=== PATIENT | female | born 1980 | race African-American/Black ===

== ENCOUNTER 2018-03-30 10:16 | Outpatient (CLI) | payer BC | END 2018-03-30 11:30 | disposition home or self-care (01) | LOC: OBT 10:16 → L-D 10:18 → OBT 11:30 | DX: O36.8120 Decreased fetal movements, second trimester, not applicable or unspecified (principal); Z3A.20 20 weeks gestation of pregnancy; O09.512 Supervision of elderly primigravida, second trimester; Z88.0 Allergy status to penicillin | CPT/HCPCS: 76815 ==

== ENCOUNTER 2018-08-03 12:35 | Inpatient (IN) | payer BC ==
[2018-08-03] MEDS ORDERED: LIDOCAINE 1% (MPF) 30 ML INJ INJ (14:30)
[2018-08-03] MEDS ORDERED: MISOPROSTOL 200 MCG TAB PR ×2 (14:30→23:00)
[2018-08-03] MEDS ORDERED: OXYTOCIN 30 UNITS/LR 500 ML IV ×3 (14:30→23:00)
[2018-08-03] MEDS ORDERED: IBUPROFEN 600 MG TAB PO (14:30)
[2018-08-03] MEDS ORDERED: BUTORPHANOL 2 MG INJ IV (14:30)
[2018-08-03] MEDS ORDERED: CARBOPROST 250 MCG INJ IM ×2 (14:30→23:00)
[2018-08-03] MEDS ORDERED: METHYLERGONOVINE 0.2 MG INJ IM ×2 (14:30→23:00)
[2018-08-03 14:43] LABS: ADD MAN DIFF? NO
[2018-08-03 14:45] LABS: BASOPHIL # 0.1 10^3/ul (0.0-0.1); BASOPHILS % 0.5 % (0.0-2.0); EOSINOPHILS # 0.1 10^3/ul (0.0-0.5); EOSINOPHILS % 0.6 % (0.0-7.0); HEMATOCRIT 38.6 % (37.0-47.0); HEMOGLOBIN 12.9 g/dl (12.0-16.0); LYMPHOCYTES # 2.6 10^3/ul (0.8-2.9); LYMPHOCYTES % 22.4 % (15.0-51.0); MEAN CORPUSCULAR HEMOGLOBIN 29.7 pg (29.0-33.0); MEAN CORPUSCULAR HGB CONC 33.4 g/dl (32.0-37.0); MEAN CORPUSCULAR VOLUME 88.7 fl (82.0-101.0); MEAN PLATELET VOLUME 10.8 fl (7.4-10.4); MONOCYTE # 0.6 10^3/ul (0.3-0.9); MONOCYTES % 5.5 % (0.0-11.0); NEUTROPHIL # 8.1 10^3/ul (1.6-7.5); NEUTROPHILS % 70.5 % (39.0-77.0); PLATELET COUNT 222 10^3/UL (140-415); RED BLOOD COUNT 4.35 10^6/ul (4.20-5.40); RED CELL DISTRIBUTION WIDTH 13.4 % (11.5-14.5)
[2018-08-03 14:45] LABS: WHITE BLOOD COUNT 11.5 10^3/ul (4.8-10.8)
[2018-08-03] MEDS: LACTATED RINGER'S 1,000 ML IV ×2 (14:47→21:35)
[2018-08-03 15:05] LABS: INR 0.83; PARTIAL THROMBOPLASTIN TIME 28.1 Sec (23.0-35.0); PROTIME 11.5 Sec (11.9-14.9); PT RATIO 0.9
[2018-08-03 15:05] LABS: GLUCOSE 62 mg/dl (70-220)
[2018-08-03 15:37] LABS: HEPATITIS B SURFACE ANTIGEN NEGATIVE (NEGATIVE)
[2018-08-03] MEDS: OXYTOCIN 30 UNITS/LR 500 ML IV ×2 (15:57→23:19)
[2018-08-03] MEDS: DEXTROSE 5%-LR 1,000 ML IV (18:56)
[2018-08-03 21:58] LABS: RAPID PLASMA REAGIN NONREACTIVE (NR)
[2018-08-03] MEDS ORDERED: MINERAL OIL LIGHT 10 ML VIAL (22:03)
[2018-08-03] MEDS: morphine 4 MG/ML VIAL IV (22:43)
[2018-08-03] MEDS ORDERED: morphine 4 MG/ML VIAL (22:45)
[2018-08-03] MEDS ORDERED: ONDANSETRON 4 MG INJ IV (23:00)
[2018-08-03] MEDS ORDERED: LANOLIN HPA 1 PKT TOP (23:00)
[2018-08-03] MEDS ORDERED: NACL 0.9% 3 ML SYG IV (23:00)
[2018-08-03] MEDS ORDERED: HYDROCODONE/APAP (5/325) TAB PO ×2 (23:00)
[2018-08-04] MEDS: IBUPROFEN 600 MG TAB PO ×4 (02:44→18:19)
[2018-08-04] MEDS: DEXTROSE 5%-LR 1,000 ML IV ×3 (03:00→19:00)
[2018-08-04] MEDS: OXYTOCIN 30 UNITS/LR 500 ML IV (03:18)
[2018-08-04 23:47] LABS: ADD MAN DIFF? NO
[2018-08-04 23:48] LABS: WHITE BLOOD COUNT 12.8 10^3/ul (4.8-10.8)
[2018-08-04 23:48] LABS: BASOPHIL # 0.1 10^3/ul (0.0-0.1); BASOPHILS % 0.4 % (0.0-2.0); EOSINOPHILS # 0.1 10^3/ul (0.0-0.5); EOSINOPHILS % 0.5 % (0.0-7.0); HEMATOCRIT 30.9 % (37.0-47.0); HEMOGLOBIN 10.2 g/dl (12.0-16.0); LYMPHOCYTES # 3.1 10^3/ul (0.8-2.9); LYMPHOCYTES % 23.9 % (15.0-51.0); MEAN CORPUSCULAR HEMOGLOBIN 29.7 pg (29.0-33.0); MEAN CORPUSCULAR VOLUME 90.1 fl (82.0-101.0); MEAN PLATELET VOLUME 10.7 fl (7.4-10.4); MONOCYTE # 0.7 10^3/ul (0.3-0.9); MONOCYTES % 5.4 % (0.0-11.0); NEUTROPHIL # 8.9 10^3/ul (1.6-7.5); NEUTROPHILS % 69.1 % (39.0-77.0); PLATELET COUNT 189 10^3/UL (140-415); RED BLOOD COUNT 3.43 10^6/ul (4.20-5.40); RED CELL DISTRIBUTION WIDTH 13.7 % (11.5-14.5)
[2018-08-05] MEDS: IBUPROFEN 600 MG TAB PO ×3 (01:01→12:17)
[2018-08-05] MEDS: DEXTROSE 5%-LR 1,000 ML IV (03:00)
== END 2018-08-05 14:40 | disposition home or self-care (01) | DRG 807 ==
LOC: OBT 12:35 → PP1 08-04 02:04 → L-D 12:35 → OBT 14:05 → L-D 13:53
PROVIDERS: Obstetrics & Gynecology
PROC: 10E0XZZ Delivery of Products of Conception, External Approach (ICD-10-PCS; principal; 2018-08-03)
PROC: 0KQM0ZZ Repair Perineum Muscle, Open Approach (ICD-10-PCS; 2018-08-03)
DX: O24.420 Gestational diabetes mellitus in childbirth, diet controlled (principal); Z37.0 Single live birth; O70.1 Second degree perineal laceration during delivery; Z3A.37 37 weeks gestation of pregnancy
CPT/HCPCS: 76818; 82947; 82962; 85025; 85610; 85730; 86592; 86850; 86900; 86901; 87340; 99464